=== PATIENT | male | born 1975 | race Two or more races ===

== ENCOUNTER 2022-08-15 02:46 | Emergency (ER) | payer MEDICARE, OTHER ==
[~2022-08-15] VITALS: Ht 172.7 cm; Wt 88.0 kg
[2022-08-15] VITALS (7 sets, daily range): BP systolic 133–159; BP diastolic 73–89
[2022-08-15] MEDS ORDERED: NUT.237L66 PO (04:21)
[2022-08-15] MEDS ORDERED: AMLO-257 PO (04:21)
[2022-08-15] MEDS ORDERED: BISA10SU11 PR (04:21)
[2022-08-15] MEDS ORDERED: ANUSHCS PR (04:21)
[2022-08-15] MEDS ORDERED: CEFA2PIG IV (04:21)
[2022-08-15] MEDS ORDERED: HYDR-4723 PO (04:21)
[2022-08-15] MEDS ORDERED: L. A1TAB16 PO (04:21)
[2022-08-15] MEDS ORDERED: SODI5POW3 PO (04:21)
[2022-08-15] MEDS ORDERED: SEVE800T17 PO (04:21)
[2022-08-15] MEDS ORDERED: FERR325T27 PO (04:21)
[2022-08-15] MEDS ORDERED: ACET-784 PO (04:21)
[2022-08-15] MEDS ORDERED: AMIO200T68 PO (04:21)
[2022-08-15] MEDS ORDERED: DOCU-385 PO (04:21)
[2022-08-15] MEDS ORDERED: EPOE10003 SQ (04:21)
[2022-08-15] MEDS ORDERED: ALPR-705 PO (04:21)
[2022-08-15] MEDS ORDERED: FOLI0.8T2 PO (04:21)
[2022-08-15] MEDS ORDERED: METO50 PO (04:21)
[2022-08-15 05:05] LABS: BASOPHILS % (AUTO) 1.7 % (0.0-2.0); EOSINOPHILS % (AUTO) 3.6 % (1.0-6.0); HEMATOCRIT 21.6 % (41-53); LYMPHOCYTES # (AUTO) 0.6 K/uL (1.0-4.8); LYMPHOCYTES % (AUTO) 20.4 % (22.0-44.0); MEAN CORPUSCULAR HEMOGLOBIN 29.1 pg (26.0-34.0); MEAN CORPUSCULAR HGB CONC 32.4 G/dL (31.0-37.0); MEAN CORPUSCULAR VOLUME 90 fL (80-100); MONOCYTES # (AUTO) 0.3 K/uL (0.1-1.0); MONOCYTES % (AUTO) 8.3 % (2.0-9.0); PLATELET COUNT (AUTO) 193 K/uL (150-450); RED CELL DISTRIBUTION WIDTH 21.3 % (11.5-14.5)
[2022-08-15 05:11] LABS: CALCIUM, TOTAL 9.6 mg/dL (8.8-10.5); CREATININE 4.05 mg/dL (0.60-1.30); POTASSIUM 4.5 mmol/L (3.5-5.1)
[2022-08-15 05:17] LABS: ALBUMIN 1.6 g/dL (3.4-5.0); BILIRUBIN,TOTAL 0.4 mg/dL (0.1-1.0); TOTAL PROTEIN, SERUM 7.4 g/dL (6.4-8.2)
[2022-08-15 05:19] LABS: INR 1.1 (0.9-1.1); PROTHROMBIN TIME 11.6 SEC (9.4-11.6)
[2022-08-15] MEDS ORDERED: SODIUM CHLORIDE 0.9% 250 ML IV ONE (06:30)
== END 2022-08-15 10:42 | disposition home or self-care (01) ==
LOC: EMS 02:47
DX: D64.9 Anemia, unspecified (principal); I12.0 Hypertensive chronic kidney disease with stage 5 chronic kidney disease or end stage renal disease; N18.6 End stage renal disease; Z99.2 Dependence on renal dialysis; Z98.890 Other specified postprocedural states
CPT/HCPCS: 99285; 36430; 96360; 71045; 80053; 82550; 83880; 84484; 85025; 85610; 85730; 86850; 86900; 86901; 86923; 36415; 93005; P9016; J7050

== ENCOUNTER 2022-08-19 13:17 | Inpatient (IN) | payer MEDICARE, OTHER ==
[~2022-08-19] VITALS: Ht 180.3 cm; Wt 81.8 kg
[~2022-08-19 13:17] MED LIST: ACET-784 PO; ALPR-705 PO; AMIO200T68 PO; AMLO-257 PO; ANUSHCS PR; BISA10SU11 PR; CEFA2PIG IV; DOCU-385 PO; EPOE10003 SQ; FERR325T27 PO; FOLI0.8T2 PO; HYDR-4723 PO; L. A1TAB16 PO; METO50 PO; NUT.237L66 PO; SEVE800T17 PO; SODI5POW3 PO
[2022-08-19] MEDS ORDERED: ACETAMINOPHEN 325 MG TABLET PO PRN ×2 (15:00→15:45)
[2022-08-19] MEDS ORDERED: HEPARIN SODIUM,PORCINE 5,000 UNITS/ML VIAL IVP ONE ×2 (15:00)
[2022-08-19] MEDS ORDERED: ONDANSETRON HCL 4 MG/2 ML VIAL IVP PRN (15:00)
[2022-08-19] MEDS ORDERED: HEPARIN SODIUM,PORCINE 5,000 UNITS/ML VIAL IVP PRN ×2 (15:00)
[2022-08-19 15:16] LABS: BASOPHILS % (AUTO) 1.6 % (0.0-2.0); EOSINOPHILS % (AUTO) 5.9 % (1.0-6.0); HEMATOCRIT 22.8 % (41-53); HEMOGLOBIN 7.3 g/dL (13.5-17.5); LYMPHOCYTES # (AUTO) 0.7 K/uL (1.0-4.8); LYMPHOCYTES % (AUTO) 17.9 % (22.0-44.0); MEAN CORPUSCULAR HEMOGLOBIN 28.2 pg (26.0-34.0); MEAN CORPUSCULAR HGB CONC 31.8 G/dL (31.0-37.0); MEAN CORPUSCULAR VOLUME 89 fL (80-100); MONOCYTES # (AUTO) 0.3 K/uL (0.1-1.0); MONOCYTES % (AUTO) 7.5 % (2.0-9.0); NEUTROPHILS # (AUTO) 2.5 K/uL (1.8-7.7); NEUTROPHILS % (AUTO) 67.1 % (40.0-70.0); PLATELET COUNT (AUTO) 178 K/uL (150-450); RED BLOOD CELL COUNT(AUTO) 2.57 MIL/uL (4.50-5.90); RED CELL DISTRIBUTION WIDTH 19.2 % (11.5-14.5)
[2022-08-19 15:27] LABS: CALCIUM, TOTAL 9.3 mg/dL (8.8-10.5); CREATININE 2.95 mg/dL (0.60-1.30); POTASSIUM 3.9 mmol/L (3.5-5.1)
[2022-08-19 15:32] LABS: ALBUMIN 1.6 g/dL (3.4-5.0); BILIRUBIN,TOTAL 0.3 mg/dL (0.1-1.0); TOTAL PROTEIN, SERUM 7.5 g/dL (6.4-8.2)
[2022-08-19 15:36] LABS: INR 1.1 (0.9-1.1); PROTHROMBIN TIME 11.6 SEC (9.4-11.6)
[2022-08-19] MEDS ORDERED: OxyCODONE HCL/ACETAMINOPHEN 5-325 MG TABLET PO PRN (15:45)
[2022-08-19] MEDS ORDERED: GADOTERATE MEGLUMINE 10 MMOL/20 ML VIAL IVP ONE (16:08)
[2022-08-19 16:31] VITALS: BP 169/93
[2022-08-19] MEDS ORDERED: CeFAZolin 2 GM/DEXTROSE 50 ML IV ONE (17:00)
[2022-08-19] MEDS ORDERED: SODIUM CHLORIDE 0.9% 500 ML IV ONE (19:09)
[2022-08-19 20:39] VITALS: BP 142/82
[2022-08-19] MEDS: DOCUSATE SODIUM 100 MG CAPSULE PO SCH (20:56)
[2022-08-19] MEDS: METOPROLOL TARTRATE 50 MG TABLET PO SCH (20:56)
[2022-08-19] MEDS: HEPARIN SODIUM 25000 UNITS/D5W 250 ML IV PRN (21:02)
[2022-08-20 03:24] LABS: BASOPHILS % (AUTO) 2.8 % (0.0-2.0); HEMATOCRIT 22.8 % (41-53); HEMOGLOBIN 7.5 g/dL (13.5-17.5); LYMPHOCYTES # (AUTO) 0.7 K/uL (1.0-4.8); LYMPHOCYTES % (AUTO) 21.9 % (22.0-44.0); MEAN CORPUSCULAR HEMOGLOBIN 29.4 pg (26.0-34.0); MEAN CORPUSCULAR HGB CONC 32.8 G/dL (31.0-37.0); MEAN CORPUSCULAR VOLUME 90 fL (80-100); MONOCYTES # (AUTO) 0.3 K/uL (0.1-1.0); MONOCYTES % (AUTO) 10.2 % (2.0-9.0); NEUTROPHILS # (AUTO) 1.9 K/uL (1.8-7.7); NEUTROPHILS % (AUTO) 59.1 % (40.0-70.0); PLATELET COUNT (AUTO) 179 K/uL (150-450); RED BLOOD CELL COUNT(AUTO) 2.55 MIL/uL (4.50-5.90); RED CELL DISTRIBUTION WIDTH 19.1 % (11.5-14.5)
[2022-08-20] MEDS: HEPARIN SODIUM 25000 UNITS/D5W 250 ML IV PRN (03:58)
[2022-08-20] MEDS: OxyCODONE HCL/ACETAMINOPHEN 5-325 MG TABLET PO PRN (04:01)
[2022-08-20 04:08] VITALS: BP 155/83
[2022-08-20 08:02] VITALS: BP 157/89
[2022-08-20] MEDS: AmLODIPine BESYLATE 5 MG TABLET PO SCH ×2 (09:00→10:59)
[2022-08-20] MEDS: FAMOTIDINE 20 MG TABLET PO SCH ×2 (09:00→10:59)
[2022-08-20] MEDS ORDERED: APIXABAN 2.5 MG TABLET PO SCH (09:00)
[2022-08-20] MEDS: DOCUSATE SODIUM 100 MG CAPSULE PO SCH ×2 (09:00→10:59)
[2022-08-20] MEDS: METOPROLOL TARTRATE 50 MG TABLET PO SCH ×2 (09:00→10:59)
[2022-08-20] MEDS: SEVELAMER CARBONATE 800 MG TABLET PO SCH ×2 (12:00→17:36)
[2022-08-20 15:10] VITALS: BP 145/79
[2022-08-20] MEDS ORDERED: CeFAZolin 1 GM/DEXTROSE 50 ML IV SCH (17:00)
[2022-08-20] MEDS: FOLIC ACID/VIT B COMPLEX AND C TABLET PO SCH (17:36)
[2022-08-20 18:12] LABS: SPECIMENTYPE,BODY FLUID SYNOVIAL
[2022-08-20 19:40] VITALS: BP 145/85
[2022-08-20 19:50] LABS: APPEARANCE,SPUN,BODY FLUID HAZY (CLEAR); APPEARANCE,UNSPUN,BODY FLUID TURBID (CLEAR)
[2022-08-20 19:51] LABS: BASOPHILS,BODY FLUID 0 %; COLOR,BODY FLUID AMBER (LT YELLOW); EOSINOPHILS,BF (ANAL) 0 %; LYMPHOCYTES,BODY FLUID 0 %; MONOCYTES,BODY FLUID 5 %; NEUTROPHILS,BODY FLUID 95 %; TOTAL VOLUME,BODY FLUID 70 mL; WBC, BODY FLUID 34700 /cu. mm.
[2022-08-20 19:52] LABS: CRYSTALS, SYNOVIAL FLUID None Seen (None Seen)
[2022-08-21] VITALS (13 sets, daily range): BP systolic 125–162; BP diastolic 67–101
[2022-08-21] MEDS: EPOETIN ALFA 10,000 UNITS/ML VIAL SQ SCH (08:11)
[2022-08-21] MEDS: FOLIC ACID/VIT B COMPLEX AND C TABLET PO SCH (08:11)
[2022-08-21] MEDS: SEVELAMER CARBONATE 800 MG TABLET PO SCH ×3 (08:11→17:03)
[2022-08-21] MEDS: METOPROLOL TARTRATE 50 MG TABLET PO SCH ×2 (08:14→20:09)
[2022-08-21] MEDS: DOCUSATE SODIUM 100 MG CAPSULE PO SCH ×2 (08:14→20:09)
[2022-08-21] MEDS: OxyCODONE HCL/ACETAMINOPHEN 5-325 MG TABLET PO PRN (20:09)
[2022-08-22 04:54] VITALS: BP 148/85
[2022-08-22 07:47] VITALS: BP 160/84
[2022-08-22] MEDS: SEVELAMER CARBONATE 800 MG TABLET PO SCH ×3 (07:49→18:22)
[2022-08-22] MEDS: AmLODIPine BESYLATE 5 MG TABLET PO SCH (07:49)
[2022-08-22] MEDS: FOLIC ACID/VIT B COMPLEX AND C TABLET PO SCH (07:49)
[2022-08-22] MEDS: DOCUSATE SODIUM 100 MG CAPSULE PO SCH ×2 (07:50→20:00)
[2022-08-22] MEDS: METOPROLOL TARTRATE 50 MG TABLET PO SCH ×2 (07:50→20:00)
[2022-08-22] MEDS: FAMOTIDINE 20 MG TABLET PO SCH (07:50)
[2022-08-22 15:10] VITALS: BP 152/83
[2022-08-22 19:45] VITALS: BP 145/82
[2022-08-23 03:56] VITALS: BP 152/86
[2022-08-23 04:05] VITALS: BP 149/83
[2022-08-23 07:08] LABS: EOSINOPHILS % (AUTO) 2.7 % (1.0-6.0); HEMATOCRIT 25.3 % (41-53); HEMOGLOBIN 8.3 g/dL (13.5-17.5); LYMPHOCYTES # (AUTO) 0.9 K/uL (1.0-4.8); LYMPHOCYTES % (AUTO) 18.8 % (22.0-44.0); MEAN CORPUSCULAR HEMOGLOBIN 29.3 pg (26.0-34.0); MEAN CORPUSCULAR HGB CONC 32.8 G/dL (31.0-37.0); MEAN CORPUSCULAR VOLUME 89 fL (80-100); MONOCYTES # (AUTO) 0.5 K/uL (0.1-1.0); MONOCYTES % (AUTO) 9.4 % (2.0-9.0); NEUTROPHILS # (AUTO) 3.3 K/uL (1.8-7.7); NEUTROPHILS % (AUTO) 68.1 % (40.0-70.0); PLATELET COUNT (AUTO) 249 K/uL (150-450); RED BLOOD CELL COUNT(AUTO) 2.84 MIL/uL (4.50-5.90); RED CELL DISTRIBUTION WIDTH 18.7 % (11.5-14.5)
[2022-08-23 07:27] LABS: ALBUMIN 1.6 g/dL (3.4-5.0); ALKALINE PHOSPHATASE 113 U/L (46-116); ANION GAP 5 mmol/L (8-16); ASPARTATE AMINOTRANSFERASE 15 U/L (15-37); BILIRUBIN,TOTAL 0.4 mg/dL (0.1-1.0); C-REACTIVE PROTEIN QUANT 12.42 mg/dL (0.00-0.30); CALCIUM, TOTAL 9.8 mg/dL (8.8-10.5); CARBON DIOXIDE 29 mmol/L (22-29); CHLORIDE 99 mmol/L (98-107); CREATININE 5.74 mg/dL (0.60-1.30); GLOMERULAR FILTR. RATE CALC 11 mL/min (>60); GLUCOSE,RANDOM 92 mg/dL (70-110); POTASSIUM 4.1 mmol/L (3.5-5.1); SODIUM SERUM 133 mmol/L (136-145); TOTAL PROTEIN, SERUM 7.8 g/dL (6.4-8.2); UREA NITROGEN, BLOOD 34 mg/dL (7-18)
[2022-08-23 07:57] LABS: ALANINE AMINOTRANSFERASE < 6 U/L (12-78)
[2022-08-23 08:00] VITALS: BP 138/82
[2022-08-23] MEDS: METOPROLOL TARTRATE 50 MG TABLET PO SCH ×2 (08:10→20:20)
[2022-08-23] MEDS: DOCUSATE SODIUM 100 MG CAPSULE PO SCH ×2 (08:10→20:20)
[2022-08-23] MEDS: SEVELAMER CARBONATE 800 MG TABLET PO SCH ×4 (08:10→17:33)
[2022-08-23] MEDS: FOLIC ACID/VIT B COMPLEX AND C TABLET PO SCH (08:10)
[2022-08-23] MEDS: FAMOTIDINE 20 MG TABLET PO SCH (09:45)
[2022-08-23] MEDS: AmLODIPine BESYLATE 5 MG TABLET PO SCH (09:45)
[2022-08-23 15:53] VITALS: BP 157/83
[2022-08-23 19:25] VITALS: BP_SYST 121; BP_SYST 131; BP_DIAS 65
[2022-08-24] VITALS (13 sets, daily range): BP systolic 143–168; BP diastolic 76–94
[2022-08-24] MEDS: SEVELAMER CARBONATE 800 MG TABLET PO SCH ×3 (08:00→17:44)
[2022-08-24] MEDS: EPOETIN ALFA 10,000 UNITS/ML VIAL SQ SCH (08:44)
[2022-08-24] MEDS: FOLIC ACID/VIT B COMPLEX AND C TABLET PO SCH (08:45)
[2022-08-24] MEDS: FAMOTIDINE 20 MG TABLET PO SCH (08:45)
[2022-08-24] MEDS: DOCUSATE SODIUM 100 MG CAPSULE PO SCH ×2 (08:45→20:01)
[2022-08-24] MEDS ORDERED: SODIUM CHLORIDE 0.9% 2,000 ML ONE (10:41)
[2022-08-24] MEDS: METOPROLOL TARTRATE 50 MG TABLET PO SCH ×2 (15:27→20:01)
[2022-08-24] MEDS: AmLODIPine BESYLATE 5 MG TABLET PO SCH (15:30)
[2022-08-24] MEDS ORDERED: CeFAZolin 2 GM/DEXTROSE 50 ML IV SCH (16:00)
[2022-08-24] MEDS ORDERED: [UNRECOGNIZED DRUG - CODE] IV (16:45)
[2022-08-24] MEDS ORDERED: FAMO20 PO (16:48)
[2022-08-25 04:52] VITALS: BP 151/83
[2022-08-25] MEDS: FOLIC ACID/VIT B COMPLEX AND C TABLET PO SCH (08:27)
[2022-08-25] MEDS: METOPROLOL TARTRATE 50 MG TABLET PO SCH (08:27)
[2022-08-25] MEDS: SEVELAMER CARBONATE 800 MG TABLET PO SCH (08:28)
[2022-08-25] MEDS: AmLODIPine BESYLATE 5 MG TABLET PO SCH (08:28)
[2022-08-25] MEDS: FAMOTIDINE 20 MG TABLET PO SCH (08:28)
[2022-08-25] MEDS: DOCUSATE SODIUM 100 MG CAPSULE PO SCH (08:28)
[2022-08-25] MEDS ORDERED: AMIODARONE HCL 200 MG TABLET PO ONE (11:15)
[2022-08-25] MEDS ORDERED: ALPRAZolam 0.25 MG TABLET PO PRN (11:15)
[2022-08-25] MEDS ORDERED: SEVELAMER CARBONATE 800 MG TABLET PO SCH (12:00)
[2022-08-25] MEDS ORDERED: METOPROLOL TARTRATE 50 MG TABLET PO SCH (21:00)
[2022-08-26] MEDS ORDERED: AmLODIPine BESYLATE 5 MG TABLET PO SCH (09:00)
[2022-08-26] MEDS ORDERED: AMIODARONE HCL 200 MG TABLET PO SCH (09:00)
== END 2022-08-25 12:30 | DRG 557 ==
LOC: EMS 13:28 → 6N 15:58
PROVIDERS: ADMIT Internal Medicine; ATTEND Internal Medicine
PROC: 0R9K3ZX Drainage of Left Shoulder Joint, Percutaneous Approach, Diagnostic (ICD-10-PCS; principal; 2022-08-20)
PROC: 5A1D70Z Performance of Urinary Filtration, Intermittent, Less than 6 Hours Per Day (ICD-10-PCS; 2022-08-21)
PROC: 5A1D70Z Performance of Urinary Filtration, Intermittent, Less than 6 Hours Per Day (ICD-10-PCS; 2022-08-24)
DX: M65.812 Other synovitis and tenosynovitis, left shoulder (principal); N18.6 End stage renal disease; I82.623 Acute embolism and thrombosis of deep veins of upper extremity, bilateral; I12.0 Hypertensive chronic kidney disease with stage 5 chronic kidney disease or end stage renal disease; N25.81 Secondary hyperparathyroidism of renal origin; M00.9 Pyogenic arthritis, unspecified; R17 Unspecified jaundice; M25.412 Effusion, left shoulder; E11.22 Type 2 diabetes mellitus with diabetic chronic kidney disease; D72.819 Decreased white blood cell count, unspecified; D63.1 Anemia in chronic kidney disease; M75.122 Complete rotator cuff tear or rupture of left shoulder, not specified as traumatic; Z96.651 Presence of right artificial knee joint; Z99.2 Dependence on renal dialysis; Z79.899 Other long term (current) drug therapy
CPT/HCPCS: 73221; 80053; 82945; 84157; 85025; 85610; 85651; 85730; 86140; 87015; 87070; 87075; 87081; 87101; 87205; 87206; 87481; 89051; 89060; 90935; 97110; 97116; 97163; 97166; 97530; 97535; 99285; J0690; J0885; J1644; J7030; J7040; J7060; 36415-L1; 36415-TC

== ENCOUNTER 2022-09-11 02:29 | Inpatient (IN) | payer MEDICARE, OTHER ==
[2022-09-11] VITALS (23 sets, daily range): BP systolic 140–165; BP diastolic 69–95
[~2022-09-11] VITALS: Ht 182.9 cm; Wt 98.0 kg
[~2022-09-11 02:29] MED LIST changes: +FAMO20 PO; -NUT.237L66 PO; +[UNRECOGNIZED DRUG - CODE] IV
[2022-09-11 03:48] LABS: BASOPHILS % (AUTO) 1.6 % (0.0-2.0); EOSINOPHILS % (AUTO) 4.2 % (1.0-6.0); LYMPHOCYTES # (AUTO) 0.8 K/uL (1.0-4.8); LYMPHOCYTES % (AUTO) 16.2 % (22.0-44.0); MEAN CORPUSCULAR HEMOGLOBIN 27.6 pg (26.0-34.0); MEAN CORPUSCULAR HGB CONC 32.1 G/dL (31.0-37.0); MEAN CORPUSCULAR VOLUME 86 fL (80-100); MONOCYTES # (AUTO) 0.6 K/uL (0.1-1.0); MONOCYTES % (AUTO) 13.1 % (2.0-9.0); NEUTROPHILS # (AUTO) 3.1 K/uL (1.8-7.7); NEUTROPHILS % (AUTO) 64.9 % (40.0-70.0); PLATELET COUNT (AUTO) 299 K/uL (150-450); RED BLOOD CELL COUNT(AUTO) 2.35 MIL/uL (4.50-5.90); RED CELL DISTRIBUTION WIDTH 17.4 % (11.5-14.5)
[2022-09-11 03:54] LABS: HEMATOCRIT 20.2 % (41-53); HEMOGLOBIN 6.5 g/dL (13.5-17.5)
[2022-09-11 03:58] LABS: CREATININE 5.38 mg/dL (0.60-1.30); POTASSIUM 5.3 mmol/L (3.5-5.1)
[2022-09-11 04:04] LABS: ALBUMIN 1.7 g/dL (3.4-5.0); BILIRUBIN,TOTAL 0.3 mg/dL (0.1-1.0)
[2022-09-11] MEDS ORDERED: ZOLPIDEM TARTRATE 5 MG TABLET PO PRN (11:00)
[2022-09-11] MEDS ORDERED: BISACODYL 10 MG RECTAL RECTAL SUPPOSITORY PR PRN (11:00)
[2022-09-11] MEDS ORDERED: MORPHINE SULFATE 2 MG/ML SYRINGE IVP PRN (11:00)
[2022-09-11] MEDS ORDERED: MAGNESIUM HYDROXIDE SUSPENSION 30 ML UDCUP PO PRN (11:00)
[2022-09-11] MEDS ORDERED: CEFAZOLIN IV SCH (11:00)
[2022-09-11] MEDS ORDERED: ONDANSETRON HCL 4 MG/2 ML VIAL IVP PRN (11:00)
[2022-09-11] MEDS ORDERED: DEXTROSE IV SCH (11:00)
[2022-09-11] MEDS ORDERED: HYDROCODONE/ACETAMINOPHEN 5-325 MG TABLET PO PRN (11:00)
[2022-09-11] MEDS ORDERED: ACETAMINOPHEN 325 MG TABLET PO PRN (11:00)
[2022-09-11] MEDS ORDERED: [UNRECOGNIZED DRUG - CODE] IV (11:09)
[2022-09-11] MEDS ORDERED: CEFA2VIA IV (11:09)
[2022-09-11] MEDS: SEVELAMER CARBONATE 800 MG TABLET PO SCH ×2 (12:00→18:00)
[2022-09-11] MEDS ORDERED: EPOETIN ALFA 10,000 UNITS/ML 2 ML VIAL SQ SCH (12:15)
[2022-09-11] MEDS: FERROUS SULFATE 325 MG EC TABLET PO SCH ×2 (12:17→20:13)
[2022-09-11] MEDS: HEPARIN SODIUM,PORCINE 5,000 UNITS/ML VIAL SQ SCH ×2 (16:00→23:45)
[2022-09-11] MEDS ORDERED: CeFAZolin 2 GM/DEXTROSE 50 ML IV SCH (16:00)
[2022-09-11] MEDS ORDERED: SODIUM CHLORIDE 0.9% 500 ML IV ONE (20:07)
[2022-09-11] MEDS: METOPROLOL TARTRATE 50 MG TABLET PO SCH (20:13)
[2022-09-11] MEDS: AMIODARONE HCL 200 MG TABLET PO SCH (20:13)
[2022-09-11] MEDS: DOCUSATE SODIUM 100 MG CAPSULE PO SCH (20:13)
[2022-09-12 03:40] VITALS: BP 155/85
[2022-09-12 07:28] VITALS: BP 145/81
[2022-09-12] MEDS: SEVELAMER CARBONATE 800 MG TABLET PO SCH ×2 (08:00→12:00)
[2022-09-12] MEDS: HEPARIN SODIUM,PORCINE 5,000 UNITS/ML VIAL SQ SCH ×2 (08:00→08:07)
[2022-09-12] MEDS: FERROUS SULFATE 325 MG EC TABLET PO SCH ×2 (08:04→12:11)
[2022-09-12] MEDS: METOPROLOL TARTRATE 50 MG TABLET PO SCH (08:05)
[2022-09-12] MEDS: AMIODARONE HCL 200 MG TABLET PO SCH (08:06)
[2022-09-12] MEDS: DOCUSATE SODIUM 100 MG CAPSULE PO SCH (08:07)
[2022-09-12 08:17] LABS: BASOPHILS % (AUTO) 1.8 % (0.0-2.0); EOSINOPHILS % (AUTO) 4.8 % (1.0-6.0); HEMATOCRIT 24.2 % (41-53); LYMPHOCYTES # (AUTO) 0.8 K/uL (1.0-4.8); LYMPHOCYTES % (AUTO) 17.3 % (22.0-44.0); MEAN CORPUSCULAR HEMOGLOBIN 28.5 pg (26.0-34.0); MEAN CORPUSCULAR VOLUME 87 fL (80-100); MONOCYTES # (AUTO) 0.5 K/uL (0.1-1.0); MONOCYTES % (AUTO) 11.5 % (2.0-9.0); NEUTROPHILS # (AUTO) 2.9 K/uL (1.8-7.7); NEUTROPHILS % (AUTO) 64.6 % (40.0-70.0); PLATELET COUNT (AUTO) 295 K/uL (150-450); RED BLOOD CELL COUNT(AUTO) 2.79 MIL/uL (4.50-5.90); RED CELL DISTRIBUTION WIDTH 17.4 % (11.5-14.5)
[2022-09-12] MEDS ORDERED: FAMOTIDINE 20 MG TABLET PO SCH (09:00)
[2022-09-12] MEDS ORDERED: FOLIC ACID/VIT B COMPLEX AND C TABLET PO SCH (09:00)
[2022-09-12] MEDS ORDERED: AmLODIPine BESYLATE 5 MG TABLET PO SCH (09:00)
[2022-09-12] MEDS ORDERED: PANTOPRAZOLE SODIUM 40 MG DR TABLET PO SCH (09:00)
[2022-09-12] MEDS ORDERED: SODIUM ZIRCONIUM CYCLOSILICATE 5 GM POWDER PACKET PO SCH (09:00)
[2022-09-13] MEDS ORDERED: EPOETIN ALFA 10,000 UNITS/ML 2 ML VIAL SQ SCH (09:00)
== END 2022-09-12 15:01 | DRG 682 ==
LOC: EMS 02:32 → 6N 05:51
PROVIDERS: ADMIT Hospitalist; ATTEND Hospitalist
PROC: 30233N1 Transfusion of Nonautologous Red Blood Cells into Peripheral Vein, Percutaneous Approach (ICD-10-PCS; principal; 2022-09-11)
PROC: 5A0935A Assistance with Respiratory Ventilation, Less than 24 Consecutive Hours, High Flow/Velocity Cannula (ICD-10-PCS; 2022-09-11)
PROC: 5A1D70Z Performance of Urinary Filtration, Intermittent, Less than 6 Hours Per Day (ICD-10-PCS; 2022-09-12)
DX: I12.0 Hypertensive chronic kidney disease with stage 5 chronic kidney disease or end stage renal disease (principal); N18.6 End stage renal disease; I48.20 Chronic atrial fibrillation, unspecified; N25.81 Secondary hyperparathyroidism of renal origin; E87.5 Hyperkalemia; D63.1 Anemia in chronic kidney disease; M25.412 Effusion, left shoulder; E11.22 Type 2 diabetes mellitus with diabetic chronic kidney disease; M25.462 Effusion, left knee; Z96.651 Presence of right artificial knee joint; Z99.2 Dependence on renal dialysis; Z79.899 Other long term (current) drug therapy
CPT/HCPCS: 71045; 80053; 84484; 85025; 86850; 86900; 86901; 86923; 87081; 87340; 90935; 93005; 99291; J0690; J0885; J1644; J7040; P9016; Q9967; 36415-L1; 36415-TC

== ENCOUNTER 2022-09-24 13:37 | Inpatient (IN) | payer MEDICARE, OTHER ==
[~2022-09-24] VITALS: Ht 182.9 cm; Wt 81.8 kg
[~2022-09-24 13:37] MED LIST changes: -ALPR-705 PO; -ANUSHCS PR; -CEFA2PIG IV; +CEFA2VIA IV; -DOCU-385 PO; -EPOE10003 SQ; -L. A1TAB16 PO; -[UNRECOGNIZED DRUG - CODE] IV
[2022-09-24 14:46] LABS: SPECIMENTYPE,BODY FLUID SYNOVIAL
[2022-09-24 15:00] LABS: BASOPHILS % (AUTO) 1.3 % (0.0-2.0); EOSINOPHILS % (AUTO) 3.5 % (1.0-6.0); HEMATOCRIT 24.1 % (41-53); HEMOGLOBIN 7.6 g/dL (13.5-17.5); LYMPHOCYTES # (AUTO) 0.7 K/uL (1.0-4.8); LYMPHOCYTES % (AUTO) 10.8 % (22.0-44.0); MEAN CORPUSCULAR HEMOGLOBIN 27.2 pg (26.0-34.0); MEAN CORPUSCULAR HGB CONC 31.4 G/dL (31.0-37.0); MEAN CORPUSCULAR VOLUME 87 fL (80-100); MONOCYTES # (AUTO) 0.8 K/uL (0.1-1.0); MONOCYTES % (AUTO) 11.8 % (2.0-9.0); NEUTROPHILS % (AUTO) 72.6 % (40.0-70.0); PLATELET COUNT (AUTO) 360 K/uL (150-450); RED BLOOD CELL COUNT(AUTO) 2.78 MIL/uL (4.50-5.90); RED CELL DISTRIBUTION WIDTH 17.7 % (11.5-14.5)
[2022-09-24 15:13] LABS: ANION GAP 11 mmol/L (8-16); CALCIUM, TOTAL 10.2 mg/dL (8.8-10.5); CARBON DIOXIDE 23 mmol/L (22-29); CHLORIDE 100 mmol/L (98-107); CREATININE 4.93 mg/dL (0.60-1.30); GLOMERULAR FILTR. RATE CALC 13 mL/min (>60); GLUCOSE,RANDOM 97 mg/dL (70-110); POTASSIUM 4.3 mmol/L (3.5-5.1); SODIUM SERUM 134 mmol/L (136-145)
[2022-09-24 15:19] LABS: ALBUMIN 1.8 g/dL (3.4-5.0); ALKALINE PHOSPHATASE 251 U/L (46-116); ASPARTATE AMINOTRANSFERASE 39 U/L (15-37); BILIRUBIN,TOTAL 0.3 mg/dL (0.1-1.0); C-REACTIVE PROTEIN QUANT 17.94 mg/dL (0.00-0.30); TOTAL PROTEIN, SERUM 8.5 g/dL (6.4-8.2)
[2022-09-24] MEDS ORDERED: ZOLP-280 PO (15:19)
[2022-09-24] MEDS ORDERED: CEFA1VIA11 IV (15:19)
[2022-09-24] MEDS ORDERED: ACET-784 PO (15:19)
[2022-09-24] MEDS ORDERED: BUME1TAB34 PO (15:19)
[2022-09-24] MEDS ORDERED: EPOE10003 SQ (15:19)
[2022-09-24] MEDS ORDERED: [UNRECOGNIZED DRUG - CODE] TP (15:19)
[2022-09-24] MEDS ORDERED: PANT-31 PO (15:19)
[2022-09-24] MEDS ORDERED: B CO1CAP6 PO (15:19)
[2022-09-24 15:29] LABS: ALANINE AMINOTRANSFERASE 4 U/L (12-78)
[2022-09-24 15:50] LABS: URIC ACID 4.4 mg/dL (2.6-7.2)
[2022-09-24 16:14] LABS: APPEARANCE,SPUN,BODY FLUID CLEAR (CLEAR); APPEARANCE,UNSPUN,BODY FLUID TURBID (CLEAR); BASOPHILS,BODY FLUID 0 %; COLOR,BODY FLUID ORANGE (LT YELLOW); EOSINOPHILS,BF (ANAL) 0 %; LYMPHOCYTES,BODY FLUID 0 %; MONOCYTES,BODY FLUID 0 %; NEUTROPHILS,BODY FLUID 100 %; TOTAL VOLUME,BODY FLUID 7 mL; WBC, BODY FLUID 25670 /cu. mm.
[2022-09-24] MEDS ORDERED: CeFAZolin 2 GM/DEXTROSE 50 ML IV ONE (16:15)
[2022-09-24] MEDS ORDERED: 0.9% SODIUM CHLORIDE 10 ML SYRINGE IVP PRN (16:30)
[2022-09-24] MEDS ORDERED: ACETAMINOPHEN 325 MG TABLET PO PRN ×2 (16:30→19:30)
[2022-09-24] MEDS ORDERED: ONDANSETRON HCL 4 MG/2 ML VIAL IVP PRN ×2 (16:30→19:30)
[2022-09-24 16:53] LABS: ERYTHROCYTE SEDIMENTATION RATE > 150 MM/HR (0-15)
[2022-09-24 17:14] VITALS: BP 139/79
[2022-09-24] MEDS ORDERED: SODIUM CHLORIDE 0.9% 500 ML IV ONE (17:20)
[2022-09-24 19:20] VITALS: BP 141/71
[2022-09-24] MEDS ORDERED: BISACODYL 10 MG RECTAL RECTAL SUPPOSITORY PR PRN (19:30)
[2022-09-24] MEDS ORDERED: MAGNESIUM HYDROXIDE SUSPENSION 30 ML UDCUP PO PRN (19:30)
[2022-09-24] MEDS ORDERED: ZOLPIDEM TARTRATE 5 MG TABLET PO PRN (19:30)
[2022-09-24] MEDS: DOCUSATE SODIUM 100 MG CAPSULE PO SCH (21:00)
[2022-09-24] MEDS: HEPARIN SODIUM,PORCINE 5,000 UNITS/ML VIAL SQ SCH (23:29)
[2022-09-25 04:04] VITALS: BP 145/75
[2022-09-25] MEDS: MORPHINE SULFATE 2 MG/ML SYRINGE IVP PRN (04:24)
[2022-09-25 07:23] LABS: BASOPHILS % (AUTO) 1.4 % (0.0-2.0); EOSINOPHILS % (AUTO) 6.1 % (1.0-6.0); HEMATOCRIT 25.1 % (41-53); HEMOGLOBIN 8.1 g/dL (13.5-17.5); LYMPHOCYTES # (AUTO) 0.8 K/uL (1.0-4.8); LYMPHOCYTES % (AUTO) 15.6 % (22.0-44.0); MEAN CORPUSCULAR HEMOGLOBIN 27.7 pg (26.0-34.0); MEAN CORPUSCULAR HGB CONC 32.1 G/dL (31.0-37.0); MEAN CORPUSCULAR VOLUME 86 fL (80-100); MONOCYTES # (AUTO) 0.7 K/uL (0.1-1.0); MONOCYTES % (AUTO) 14.7 % (2.0-9.0); NEUTROPHILS # (AUTO) 3.1 K/uL (1.8-7.7); NEUTROPHILS % (AUTO) 62.2 % (40.0-70.0); PLATELET COUNT (AUTO) 283 K/uL (150-450); RED BLOOD CELL COUNT(AUTO) 2.91 MIL/uL (4.50-5.90); RED CELL DISTRIBUTION WIDTH 17.6 % (11.5-14.5)
[2022-09-25 07:39] LABS: ALBUMIN 1.6 g/dL (3.4-5.0); BILIRUBIN,TOTAL 0.2 mg/dL (0.1-1.0); CALCIUM, TOTAL 9.8 mg/dL (8.8-10.5); CREATININE 5.86 mg/dL (0.60-1.30); POTASSIUM 4.4 mmol/L (3.5-5.1); TOTAL PROTEIN, SERUM 7.5 g/dL (6.4-8.2)
[2022-09-25] MEDS: HEPARIN SODIUM,PORCINE 5,000 UNITS/ML VIAL SQ SCH ×2 (08:00→16:05)
[2022-09-25 08:03] VITALS: BP 156/80
[2022-09-25] MEDS: FOLIC ACID/VIT B COMPLEX AND C TABLET PO SCH (08:08)
[2022-09-25] MEDS: FERROUS SULFATE 325 MG EC TABLET PO SCH ×3 (08:08→17:40)
[2022-09-25] MEDS: PANTOPRAZOLE SODIUM 40 MG DR TABLET PO SCH (08:09)
[2022-09-25] MEDS: AMIODARONE HCL 200 MG TABLET PO SCH (08:09)
[2022-09-25] MEDS: AmLODIPine BESYLATE 5 MG TABLET PO SCH (08:09)
[2022-09-25] MEDS: BUMETANIDE 1 MG TABLET PO SCH (08:09)
[2022-09-25] MEDS: FAMOTIDINE 20 MG TABLET PO SCH (08:10)
[2022-09-25] MEDS: DOCUSATE SODIUM 100 MG CAPSULE PO SCH ×2 (08:12→21:00)
[2022-09-25 15:16] VITALS: BP 148/78
[2022-09-25 19:18] VITALS: BP 146/79
[2022-09-26] VITALS (12 sets, daily range): BP systolic 121–156; BP diastolic 59–89
[2022-09-26] MEDS: MORPHINE SULFATE 2 MG/ML SYRINGE IVP PRN (02:55)
[2022-09-26] MEDS: DOCUSATE SODIUM 100 MG CAPSULE PO SCH ×2 (08:29→20:05)
[2022-09-26] MEDS: FAMOTIDINE 20 MG TABLET PO SCH (08:29)
[2022-09-26] MEDS: FOLIC ACID/VIT B COMPLEX AND C TABLET PO SCH (08:29)
[2022-09-26] MEDS: PANTOPRAZOLE SODIUM 40 MG DR TABLET PO SCH (08:29)
[2022-09-26] MEDS: FERROUS SULFATE 325 MG EC TABLET PO SCH ×3 (08:29→18:10)
[2022-09-26] MEDS: HEPARIN SODIUM,PORCINE 5,000 UNITS/ML VIAL SQ SCH ×4 (08:30→23:17)
[2022-09-26] MEDS: AMIODARONE HCL 200 MG TABLET PO SCH (09:00)
[2022-09-26] MEDS: BUMETANIDE 1 MG TABLET PO SCH (09:00)
[2022-09-26] MEDS: AmLODIPine BESYLATE 5 MG TABLET PO SCH (09:00)
[2022-09-26] MEDS ORDERED: SODIUM CHLORIDE 0.9% 2,000 ML ONE (12:30)
[2022-09-27] MEDS: MORPHINE SULFATE 2 MG/ML SYRINGE IVP PRN ×3 (03:27→23:02)
[2022-09-27 03:43] VITALS: BP 166/80
[2022-09-27 07:07] LABS: RHEUMATOID FACTOR, REF LAB 24.2 IU/mL (<14.0)
[2022-09-27] MEDS: HEPARIN SODIUM,PORCINE 5,000 UNITS/ML VIAL SQ SCH ×3 (08:00→23:02)
[2022-09-27] MEDS: FOLIC ACID/VIT B COMPLEX AND C TABLET PO SCH (08:21)
[2022-09-27] MEDS: AMIODARONE HCL 200 MG TABLET PO SCH (08:21)
[2022-09-27] MEDS: BUMETANIDE 1 MG TABLET PO SCH (08:21)
[2022-09-27] MEDS: FERROUS SULFATE 325 MG EC TABLET PO SCH ×3 (08:22→18:24)
[2022-09-27] MEDS: FAMOTIDINE 20 MG TABLET PO SCH (08:22)
[2022-09-27] MEDS: DOCUSATE SODIUM 100 MG CAPSULE PO SCH ×2 (08:22→20:33)
[2022-09-27] MEDS: AmLODIPine BESYLATE 5 MG TABLET PO SCH (08:22)
[2022-09-27] MEDS: EPOETIN ALFA 10,000 UNITS/ML VIAL SQ SCH (09:09)
[2022-09-27 15:46] VITALS: BP 159/85
[2022-09-27 19:27] VITALS: BP 152/87
[2022-09-28] VITALS (12 sets, daily range): BP systolic 131–152; BP diastolic 77–83
[2022-09-28] MEDS: HYDROCODONE/ACETAMINOPHEN 5-325 MG TABLET PO PRN ×2 (02:14→09:25)
[2022-09-28] MEDS: HEPARIN SODIUM,PORCINE 5,000 UNITS/ML VIAL SQ SCH ×3 (08:00→23:34)
[2022-09-28] MEDS: FAMOTIDINE 20 MG TABLET PO SCH (09:00)
[2022-09-28] MEDS: AMIODARONE HCL 200 MG TABLET PO SCH (09:00)
[2022-09-28] MEDS: FOLIC ACID/VIT B COMPLEX AND C TABLET PO SCH (09:00)
[2022-09-28] MEDS: AmLODIPine BESYLATE 5 MG TABLET PO SCH (09:00)
[2022-09-28] MEDS: BUMETANIDE 1 MG TABLET PO SCH (09:00)
[2022-09-28] MEDS: DOCUSATE SODIUM 100 MG CAPSULE PO SCH ×2 (09:00→20:41)
[2022-09-28] MEDS: FERROUS SULFATE 325 MG EC TABLET PO SCH ×3 (09:26→17:35)
[2022-09-28] MEDS ORDERED: CeFAZolin 2 GM/DEXTROSE 50 ML IV SCH (18:00)
[2022-09-28] MEDS: MORPHINE SULFATE 2 MG/ML SYRINGE IVP PRN (22:07)
[2022-09-29 04:06] VITALS: BP 149/84
[2022-09-29] MEDS: HEPARIN SODIUM,PORCINE 5,000 UNITS/ML VIAL SQ SCH ×2 (08:00→15:37)
[2022-09-29 08:12] VITALS: BP 156/82
[2022-09-29] MEDS: FAMOTIDINE 20 MG TABLET PO SCH (08:16)
[2022-09-29] MEDS: FERROUS SULFATE 325 MG EC TABLET PO SCH ×3 (08:16→17:59)
[2022-09-29] MEDS: BUMETANIDE 1 MG TABLET PO SCH (08:17)
[2022-09-29] MEDS: AMIODARONE HCL 200 MG TABLET PO SCH (08:17)
[2022-09-29] MEDS: AmLODIPine BESYLATE 5 MG TABLET PO SCH (08:18)
[2022-09-29] MEDS: FOLIC ACID/VIT B COMPLEX AND C TABLET PO SCH (08:18)
[2022-09-29] MEDS: DOCUSATE SODIUM 100 MG CAPSULE PO SCH (08:18)
[2022-09-29] MEDS: MORPHINE SULFATE 2 MG/ML SYRINGE IVP PRN ×2 (08:19→12:20)
[2022-09-29] MEDS: EPOETIN ALFA 10,000 UNITS/ML VIAL SQ SCH (08:19)
[2022-09-29 15:51] VITALS: BP 141/82
[2022-09-29] MEDS ORDERED: FentaNYL CITRATE PF 100 MCG/2 ML VIAL ONE (16:36)
[2022-09-29] MEDS ORDERED: MIDAZOLAM HCL 2 MG/2 ML VIAL ONE (16:36)
[2022-09-29 19:44] VITALS: BP 141/86
[2022-09-29 22:00] LABS: SPECIMENTYPE,BODY FLUID SYNOVIAL
[2022-09-29 23:16] LABS: APPEARANCE,SPUN,BODY FLUID CLEAR (CLEAR); APPEARANCE,UNSPUN,BODY FLUID TURBID (CLEAR); COLOR,BODY FLUID ORANGE (LT YELLOW); TOTAL VOLUME,BODY FLUID 40 mL; WBC, BODY FLUID 2731 /cu. mm.
[2022-09-29 23:19] LABS: BASOPHILS,BODY FLUID 0 %; EOSINOPHILS,BF (ANAL) 0 %; LYMPHOCYTES,BODY FLUID 0 %; MONOCYTES,BODY FLUID 0 %; NEUTROPHILS,BODY FLUID 100 %
[2022-10-02] MEDS ORDERED: CeFAZolin 2 GM/DEXTROSE 50 ML IV SCH (18:00)
== END 2022-09-29 21:00 | DRG 564 ==
LOC: EMS 13:42 → 6N 16:36
PROVIDERS: ADMIT Internal Medicine; ATTEND Internal Medicine
PROC: 5A1D70Z Performance of Urinary Filtration, Intermittent, Less than 6 Hours Per Day (ICD-10-PCS; principal; 2022-09-26)
PROC: 0S9D30Z Drainage of Left Knee Joint with Drainage Device, Percutaneous Approach (ICD-10-PCS; 2022-09-27)
PROC: 5A1D70Z Performance of Urinary Filtration, Intermittent, Less than 6 Hours Per Day (ICD-10-PCS; 2022-09-28)
DX: M25.462 Effusion, left knee (principal); N18.6 End stage renal disease; I48.20 Chronic atrial fibrillation, unspecified; I12.0 Hypertensive chronic kidney disease with stage 5 chronic kidney disease or end stage renal disease; R17 Unspecified jaundice; M25.412 Effusion, left shoulder; M25.411 Effusion, right shoulder; E11.22 Type 2 diabetes mellitus with diabetic chronic kidney disease; D63.1 Anemia in chronic kidney disease; M19.09 Primary osteoarthritis, other specified site; M00.9 Pyogenic arthritis, unspecified; E87.5 Hyperkalemia; Z79.899 Other long term (current) drug therapy; Z96.652 Presence of left artificial knee joint; Z99.2 Dependence on renal dialysis
CPT/HCPCS: 71045; 76881; 76942; 80053; 84145; 84550; 85025; 85651; 86038; 86140; 86200; 86431; 87040; 87070; 87081; 87205; 87340; 87481; 89051; 90935; 99285; J0690; J0885; J1644; J2250; J2270; J3010; J7030; J7040; 36415-L1; 36415-TC

== ENCOUNTER 2022-10-04 00:34 | Inpatient (IN) | payer MEDICARE, OTHER ==
[2022-10-04] VITALS (13 sets, daily range): BP systolic 127–143; BP diastolic 72–89
[~2022-10-04] VITALS: Ht 182.9 cm; Wt 90.6 kg
[~2022-10-04 00:34] MED LIST changes: +B CO1CAP6 PO; +BUME1TAB34 PO; +CEFA1VIA11 IV; -HYDR-4723 PO; -METO50 PO; -SEVE800T17 PO; -SODI5POW3 PO
[2022-10-04] MEDS ORDERED: ALBUTEROL SULFATE 2.5 MG/0.5 ML NEB SOLUTION NEB ONE ×2 (00:45)
[2022-10-04] MEDS ORDERED: FUROSEMIDE 40 MG/4 ML VIAL IVP ONE (00:45)
[2022-10-04 00:58] LABS: BASOPHILS % (AUTO) 0.9 % (0.0-2.0); EOSINOPHILS % (AUTO) 3.1 % (1.0-6.0); HEMATOCRIT 29.7 % (41-53); HEMOGLOBIN 9.2 g/dL (13.5-17.5); LYMPHOCYTES # (AUTO) 2.2 K/uL (1.0-4.8); LYMPHOCYTES % (AUTO) 12.3 % (22.0-44.0); MEAN CORPUSCULAR HEMOGLOBIN 26.6 pg (26.0-34.0); MEAN CORPUSCULAR HGB CONC 30.8 G/dL (31.0-37.0); MEAN CORPUSCULAR VOLUME 86 fL (80-100); MONOCYTES # (AUTO) 0.8 K/uL (0.1-1.0); MONOCYTES % (AUTO) 4.3 % (2.0-9.0); NEUTROPHILS # (AUTO) 13.9 K/uL (1.8-7.7); NEUTROPHILS % (AUTO) 79.4 % (40.0-70.0); PLATELET COUNT (AUTO) 565 K/uL (150-450); RED BLOOD CELL COUNT(AUTO) 3.45 MIL/uL (4.50-5.90); RED CELL DISTRIBUTION WIDTH 18.5 % (11.5-14.5)
[2022-10-04] MEDS ORDERED: ACETAMINOPHEN 325 MG TABLET PO PRN (01:15)
[2022-10-04] MEDS ORDERED: ONDANSETRON HCL 4 MG/2 ML VIAL IVP PRN (01:15)
[2022-10-04] MEDS ORDERED: *CLINICAL-CEFEPIME DOSING CLINICAL ONE (01:15)
[2022-10-04 01:20] LABS: ALBUMIN 1.9 g/dL (3.4-5.0); BILIRUBIN,TOTAL 0.4 mg/dL (0.1-1.0); CALCIUM, TOTAL 10.1 mg/dL (8.8-10.5); CREATININE 8.24 mg/dL (0.60-1.30); POTASSIUM 5.7 mmol/L (3.5-5.1); TOTAL PROTEIN, SERUM 8.8 g/dL (6.4-8.2)
[2022-10-04] MEDS ORDERED: BISACODYL 10 MG RECTAL RECTAL SUPPOSITORY PR PRN (01:30)
[2022-10-04] MEDS ORDERED: ZOLPIDEM TARTRATE 5 MG TABLET PO PRN (01:30)
[2022-10-04 01:43] LABS: INR 1.2 (0.9-1.1); PROTHROMBIN TIME 12.5 SEC (9.4-11.6)
[2022-10-04] MEDS ORDERED: LORazepam 2 MG/ML VIAL IVP ONE (02:00)
[2022-10-04] MEDS ORDERED: LEVOFLOXACIN 500 MG/D5% WATER 100 ML IV ONE (02:00)
[2022-10-04] MEDS ORDERED: VANCOMYCIN 1GM/WATER(PEG/NADA) 200 ML IV PRN (02:00)
[2022-10-04] MEDS ORDERED: CEFEPIME HCL 1 GM in DEXTROSE 5%-WATER 50 ML IV ONE (02:00)
[2022-10-04] MEDS ORDERED: VANCOMYCIN HCL 1 GM/VIAL ONE (02:04)
[2022-10-04] MEDS ORDERED: DEXTROSE 5%-WATER 250 ML IV ONE (02:04)
[2022-10-04] MEDS ORDERED: VANCOMYCIN HCL 1.5 GM in DEXTROSE 5%-WATER 250 ML IV ONE (02:30)
[2022-10-04] MEDS: HYDROmorphone HCL 2 MG/ML SYRINGE IVP PRN (04:06)
[2022-10-04 05:21] LABS: CREATININE 8.5 mg/dL (0.60-1.30)
[2022-10-04] MEDS: SEVELAMER CARBONATE 800 MG TABLET PO SCH ×3 (08:00→18:03)
[2022-10-04] MEDS: FERROUS SULFATE 325 MG EC TABLET PO SCH ×3 (08:00→18:03)
[2022-10-04] MEDS: FAMOTIDINE 20 MG TABLET PO SCH (08:38)
[2022-10-04] MEDS: AmLODIPine BESYLATE 5 MG TABLET PO SCH (08:38)
[2022-10-04] MEDS: HEPARIN SODIUM,PORCINE 5,000 UNITS/ML VIAL SQ SCH ×3 (08:38→22:59)
[2022-10-04] MEDS: METOPROLOL TARTRATE 50 MG TABLET PO SCH ×2 (08:38→21:20)
[2022-10-04] MEDS: AMIODARONE HCL 200 MG TABLET PO SCH (08:38)
[2022-10-04] MEDS: PANTOPRAZOLE SODIUM 40 MG DR TABLET PO SCH (08:38)
[2022-10-04 08:44] LABS: COVID AG,FIA SOURCE NASAL SWAB
[2022-10-04] MEDS: SODIUM ZIRCONIUM CYCLOSILICATE 5 GM POWDER PACKET PO SCH (09:00)
[2022-10-04] MEDS: FOLIC ACID/VIT B COMPLEX AND C TABLET PO SCH (09:00)
[2022-10-04] MEDS: BUMETANIDE 1 MG TABLET PO SCH (09:00)
[2022-10-04] MEDS ORDERED: [UNRECOGNIZED DRUG - REMARK] PO SCH (09:00)
[2022-10-04] MEDS: HYDROCORTISONE 1% 120 ML LOTION TP SCH (09:00)
[2022-10-04] MEDS ORDERED: SODIUM CHLORIDE 0.9% 500 ML IV ONE (21:06)
[2022-10-04] MEDS: CEFEPIME HCL 0.5 GM in DEXTROSE 5%-WATER 50 ML IV SCH (22:58)
[2022-10-05] VITALS (11 sets, daily range): BP systolic 130–153; BP diastolic 73–103
[2022-10-05 07:16] LABS: BASOPHILS % (AUTO) 2.1 % (0.0-2.0); EOSINOPHILS % (AUTO) 3.2 % (1.0-6.0); HEMATOCRIT 22.8 % (41-53); HEMOGLOBIN 7.4 g/dL (13.5-17.5); LYMPHOCYTES # (AUTO) 0.6 K/uL (1.0-4.8); LYMPHOCYTES % (AUTO) 12.2 % (22.0-44.0); MEAN CORPUSCULAR HEMOGLOBIN 27.6 pg (26.0-34.0); MEAN CORPUSCULAR HGB CONC 32.4 G/dL (31.0-37.0); MEAN CORPUSCULAR VOLUME 85 fL (80-100); MONOCYTES # (AUTO) 0.5 K/uL (0.1-1.0); MONOCYTES % (AUTO) 9.5 % (2.0-9.0); NEUTROPHILS # (AUTO) 3.8 K/uL (1.8-7.7); PLATELET COUNT (AUTO) 259 K/uL (150-450); RED BLOOD CELL COUNT(AUTO) 2.67 MIL/uL (4.50-5.90); RED CELL DISTRIBUTION WIDTH 18.1 % (11.5-14.5)
[2022-10-05 07:33] LABS: CALCIUM, TOTAL 9.6 mg/dL (8.8-10.5); CREATININE 4.76 mg/dL (0.60-1.30); POTASSIUM 4.7 mmol/L (3.5-5.1)
[2022-10-05] MEDS: AmLODIPine BESYLATE 5 MG TABLET PO SCH (08:25)
[2022-10-05] MEDS: BUMETANIDE 1 MG TABLET PO SCH (08:25)
[2022-10-05] MEDS: FOLIC ACID/VIT B COMPLEX AND C TABLET PO SCH (08:25)
[2022-10-05] MEDS: AMIODARONE HCL 200 MG TABLET PO SCH (08:25)
[2022-10-05] MEDS: PANTOPRAZOLE SODIUM 40 MG DR TABLET PO SCH (08:25)
[2022-10-05] MEDS: FERROUS SULFATE 325 MG EC TABLET PO SCH ×3 (08:25→17:31)
[2022-10-05] MEDS: HEPARIN SODIUM,PORCINE 5,000 UNITS/ML VIAL SQ SCH ×3 (08:26→23:16)
[2022-10-05] MEDS: SEVELAMER CARBONATE 800 MG TABLET PO SCH ×3 (08:26→17:32)
[2022-10-05] MEDS: FAMOTIDINE 20 MG TABLET PO SCH (08:26)
[2022-10-05] MEDS: METOPROLOL TARTRATE 50 MG TABLET PO SCH ×2 (08:26→20:04)
[2022-10-05] MEDS: SODIUM ZIRCONIUM CYCLOSILICATE 5 GM POWDER PACKET PO SCH (08:26)
[2022-10-05] MEDS: HYDROCORTISONE 1% 120 ML LOTION TP SCH ×2 (08:27→08:37)
[2022-10-05] MEDS ORDERED: EPOETIN ALFA 10,000 UNITS/ML 2 ML VIAL SQ SCH (09:00)
[2022-10-05] MEDS: CEFEPIME HCL 0.5 GM in DEXTROSE 5%-WATER 50 ML IV SCH (20:05)
[2022-10-06 00:06] VITALS: BP 152/81
[2022-10-06 05:11] VITALS: BP 149/86
[2022-10-06 06:44] LABS: BASOPHILS % (AUTO) 1.9 % (0.0-2.0); EOSINOPHILS % (AUTO) 4.2 % (1.0-6.0); HEMATOCRIT 23.1 % (41-53); HEMOGLOBIN 7.5 g/dL (13.5-17.5); LYMPHOCYTES # (AUTO) 0.7 K/uL (1.0-4.8); LYMPHOCYTES % (AUTO) 16.6 % (22.0-44.0); MEAN CORPUSCULAR HEMOGLOBIN 27.4 pg (26.0-34.0); MEAN CORPUSCULAR HGB CONC 32.4 G/dL (31.0-37.0); MEAN CORPUSCULAR VOLUME 85 fL (80-100); MONOCYTES # (AUTO) 0.6 K/uL (0.1-1.0); MONOCYTES % (AUTO) 13.7 % (2.0-9.0); NEUTROPHILS # (AUTO) 2.8 K/uL (1.8-7.7); NEUTROPHILS % (AUTO) 63.6 % (40.0-70.0); PLATELET COUNT (AUTO) 259 K/uL (150-450); RED BLOOD CELL COUNT(AUTO) 2.72 MIL/uL (4.50-5.90); RED CELL DISTRIBUTION WIDTH 18.2 % (11.5-14.5)
[2022-10-06 07:47] LABS: ALBUMIN 1.6 g/dL (3.4-5.0); BILIRUBIN,TOTAL 0.3 mg/dL (0.1-1.0); CALCIUM, TOTAL 9.6 mg/dL (8.8-10.5); CREATININE 6.1 mg/dL (0.60-1.30); POTASSIUM 5.1 mmol/L (3.5-5.1); TOTAL PROTEIN, SERUM 7.4 g/dL (6.4-8.2)
[2022-10-06] MEDS: HEPARIN SODIUM,PORCINE 5,000 UNITS/ML VIAL SQ SCH ×2 (08:00→16:00)
[2022-10-06 08:14] VITALS: BP 151/84
[2022-10-06] MEDS: HYDROmorphone HCL 2 MG/ML SYRINGE IVP PRN ×2 (08:26→12:42)
[2022-10-06] MEDS: FOLIC ACID/VIT B COMPLEX AND C TABLET PO SCH (08:27)
[2022-10-06] MEDS: AMIODARONE HCL 200 MG TABLET PO SCH (08:27)
[2022-10-06] MEDS: BUMETANIDE 1 MG TABLET PO SCH (08:27)
[2022-10-06] MEDS: SODIUM ZIRCONIUM CYCLOSILICATE 5 GM POWDER PACKET PO SCH (08:27)
[2022-10-06] MEDS: FAMOTIDINE 20 MG TABLET PO SCH (08:27)
[2022-10-06] MEDS: FERROUS SULFATE 325 MG EC TABLET PO SCH ×3 (08:27→17:44)
[2022-10-06] MEDS: AmLODIPine BESYLATE 5 MG TABLET PO SCH (08:27)
[2022-10-06] MEDS: METOPROLOL TARTRATE 50 MG TABLET PO SCH (08:27)
[2022-10-06] MEDS: SEVELAMER CARBONATE 800 MG TABLET PO SCH ×3 (08:27→17:45)
[2022-10-06] MEDS: HYDROCORTISONE 1% 120 ML LOTION TP SCH (08:28)
[2022-10-06] MEDS: PANTOPRAZOLE SODIUM 40 MG DR TABLET PO SCH (08:28)
[2022-10-06] MEDS: HYDROCODONE/ACETAMINOPHEN 5-325 MG TABLET PO PRN ×3 (08:53→17:44)
[2022-10-06 12:23] VITALS: BP 134/82
[2022-10-06] MEDS ORDERED: VANCOMYCIN 1GM/WATER(PEG/NADA) 200 ML IV ONE (13:00)
[2022-10-06 16:43] VITALS: BP 148/81
== END 2022-10-06 19:00 | DRG 871 ==
LOC: EMS 00:35 → 5S 09:50
PROVIDERS: ADMIT Internal Medicine; ATTEND Internal Medicine
PROC: 5A1D70Z Performance of Urinary Filtration, Intermittent, Less than 6 Hours Per Day (ICD-10-PCS; principal; 2022-10-04)
PROC: 5A09357 Assistance with Respiratory Ventilation, Less than 24 Consecutive Hours, Continuous Positive Airway Pressure (ICD-10-PCS; 2022-10-04)
DX: A41.9 Sepsis, unspecified organism (principal); J18.9 Pneumonia, unspecified organism; J96.01 Acute respiratory failure with hypoxia; N18.6 End stage renal disease; I13.2 Hypertensive heart and chronic kidney disease with heart failure and with stage 5 chronic kidney disease, or end stage renal disease; N25.81 Secondary hyperparathyroidism of renal origin; M00.9 Pyogenic arthritis, unspecified; I24.8 Other forms of acute ischemic heart disease; Z20.822 Contact with and (suspected) exposure to COVID-19; E87.5 Hyperkalemia; F41.9 Anxiety disorder, unspecified; R91.8 Other nonspecific abnormal finding of lung field; D63.1 Anemia in chronic kidney disease; M25.512 Pain in left shoulder; M25.562 Pain in left knee; R26.2 Difficulty in walking, not elsewhere classified; Z96.659 Presence of unspecified artificial knee joint; E11.22 Type 2 diabetes mellitus with diabetic chronic kidney disease; M13.0 Polyarthritis, unspecified; E78.00 Pure hypercholesterolemia, unspecified; I50.9 Heart failure, unspecified; Y95 Nosocomial condition; Z87.01 Personal history of pneumonia (recurrent); Z99.2 Dependence on renal dialysis; Z79.899 Other long term (current) drug therapy
CPT/HCPCS: 71045; 80048; 80053; 80202; 82550; 82565; 83605; 83880; 84145; 84484; 84520; 85025; 85610; 85730; 86706; 87040; 87481; 90935; 93005; 94644; 94660; 97116; 97162; 99291; J0692; J0885; J1170; J1644; J1940; J1956; J2060; J3370; J7040; J7060; Q9967; 36415-L1; 36415-TC; J7613